=== PATIENT | female | born 1995 | race Caucasian/White ===

== ENCOUNTER 2019-05-14 21:50 | Emergency (ER) | payer OTHER, SELFPAY ==
[~2019-05-14] VITALS: Ht 160 cm; Wt 73.6 kg
[~2019-05-14 21:50] MED LIST: HYDR-3965 PO
[2019-05-14 22:34] LABS: CLARITY,URINE CLEAR (Clear); COLOR,URINE STRAW (Yellow); GLUCOSE, URINE NEGATIVE (Neg); KETONES,URINE NEGATIVE (Neg); LEUKOCYTE ESTERASE ,URINE NEGATIVE (Neg); NITRITES, URINE NEGATIVE (Neg); OCCULT BLOOD,URINE LARGE (Neg); PROTEIN,URINE NEGATIVE (Neg); UROBILINOGEN,URINE 0.2 E.U/dL (0.2-1.0)
[2019-05-14 22:35] LABS: UA COLLECTION TYPE CLN CATCH MIDSTREAM
[2019-05-14 22:41] LABS: BACTERIA,URINE NONE SEEN /HPF (Neg); RBC,URINE 0-2 /HPF (0-2); SQUAMOUS EPITHELIAL CELL,UR FEW /LPF (FEW); WBC,URINE NONE SEEN /HPF (0-4)
[2019-05-14 23:40] VITALS: BP 120/82
== END 2019-05-14 23:42 | disposition home or self-care (01) ==
LOC: ER 21:51
DX: O20.0 Threatened abortion (principal); Z3A.01 Less than 8 weeks gestation of pregnancy; Z79.899 Other long term (current) drug therapy
CPT/HCPCS: 36415; 81001; 84702; 86900; 86901; 99283

== ENCOUNTER 2019-05-22 09:32 | Emergency (ER) | payer MEDICAID, OTHER ==
[~2019-05-22] VITALS: Ht 160 cm; Wt 73.6 kg
--- NOTE | 2019-05-22 10:49 | NUR ---
ULTRA SOUND AT BEDSIDE
--- NOTE | 2019-05-22 11:28 | NUR ---
ULTRA SOUND IS FINISHED
[2019-05-22 11:35] LABS: URINE HCG POSITIVE (NEG)
[2019-05-22 11:36] VITALS: BP 122/78
[2019-05-22 11:36] LABS: CLARITY,URINE CLOUDY (Clear); COLOR,URINE YELLOW (Yellow); GLUCOSE, URINE NEGATIVE (Neg); KETONES,URINE NEGATIVE (Neg); LEUKOCYTE ESTERASE ,URINE MODERATE (Neg); NITRITES, URINE NEGATIVE (Neg); OCCULT BLOOD,URINE LARGE (Neg); PROTEIN,URINE TRACE mg/dl (Neg)
[2019-05-22 11:46] LABS: UA COLLECTION TYPE CLN CATCH MIDSTREAM
[2019-05-22 11:46] LABS: BASOPHILS # (AUTO) 0.1 X10'3 (0-0.2); BASOPHILS % (AUTO) 0.6 % (0-1); EOSINOPHILS # (AUTO) 0.1 X10'3 (0-0.9); EOSINOPHILS % (AUTO) 1.1 % (0-6); HEMATOCRIT 38.8 % (35.0-45.0); HEMOGLOBIN 13.1 g/dl (12.0-16.0); LYMPHOCYTES # (AUTO) 2.3 X10'3 (1.1-4.8); LYMPHOCYTES % (AUTO) 22.3 % (21-51); MEAN CORPUSCULAR HEMOGLOBIN 28.4 PG (27.0-31.0); MEAN CORPUSCULAR HGB CONC 33.7 g/dL (33.0-36.5); MEAN CORPUSCULAR VOLUME 84.2 FL (78-98); MEAN PLATELET VOLUME 6.9 FL (7.4-10.4); MONOCYTES # (AUTO) 0.7 X10'3 (0-0.9); MONOCYTES % (AUTO) 6.7 % (2-12); NEUTROPHILS # (AUTO) 7.3 X10'3 (1.8-7.7); NEUTROPHILS % (AUTO) 69.3 % (42-75); PLATELET COUNT 494 X10'3 (140-440); RED BLOOD COUNT 4.61 X10'6 (4.20-5.60); RED CELL DISTRIBUTION WIDTH 12.5 % (11.5-14.5); WHITE BLOOD COUNT 10.5 X10'3 (4.5-11.0)
[2019-05-22 12:02] LABS: ALANINE AMINOTRANSFERASE 15 U/L (12-78); ALBUMIN 3.8 G/DL (3.4-5.0); ALKALINE PHOSPHATASE 74 IU/L (46-116); ANION GAP 11 (8-16); ASPARTATE AMINO TRANSFERASE 14 U/L (10-37); BILIRUBIN,TOTAL 0.4 MG/DL (0.1-1.0); BLOOD UREA NITROGEN 6 MG/DL (7-18); BUN/CREATININE RATIO 9.5 (6.6-38.0); CALCIUM 9.3 MG/DL (8.5-10.1); CHLORIDE 103 MMOL/L (99-107); CREATININE 0.63 MG/DL (0.40-0.90); GLUCOSE 86 MG/DL (70-104); POTASSIUM 3.5 MMOL/L (3.5-5.1); SODIUM 137 MMOL/L (135-145); TOTAL CARBON DIOXIDE 22.9 MMOL/L (24-32); TOTAL PROTEIN 7.6 G/DL (6.4-8.2); eGFR > 90 ML/MIN
[2019-05-22 12:09] LABS: MUCUS STRANDS MANY /LPF (Neg); SQUAMOUS EPITHELIAL CELL,UR MANY /LPF (FEW)
[2019-05-22 12:14] LABS: BACTERIA,URINE 2+ /HPF (Neg); WBC,URINE 30-50 /HPF (0-4)
[2019-05-22 12:16] LABS: WBC CLUMPS,URINE MODERATE /HPF (NEGATIVE)
[2019-05-22 12:23] LABS: TRANSITIONAL EPI CELLS,URINE FEW /HPF
[2019-05-22 12:26] LABS: BETA HCG,QUANTITATIVE 77403 mIU/ml
[2019-05-22] MEDS ORDERED: CEPH250T PO (12:28)
== END 2019-05-22 12:45 | disposition home or self-care (01) ==
LOC: ER 09:33
DX: O00.01 Abdominal pregnancy with intrauterine pregnancy (principal); O23.41 Unspecified infection of urinary tract in pregnancy, first trimester; Z3A.01 Less than 8 weeks gestation of pregnancy; Z79.899 Other long term (current) drug therapy
CPT/HCPCS: 36415; 76817; 80053; 81001; 81025; 84702; 85025; 99284

== ENCOUNTER 2019-10-24 01:23 | Emergency (ER) | payer MEDICAID ==
[~2019-10-24] VITALS: Ht 162.6 cm; Wt 71.8 kg
[2019-10-24 01:24] VITALS: BP 126/77
--- NOTE | 2019-10-24 01:48 | NUR ---
HR 160 BEATS A MINUTE
== END 2019-10-24 02:27 | disposition home or self-care (01) ==
LOC: ER 01:24
DX: O71.6 Obstetric damage to pelvic joints and ligaments (principal); Z3A.29 29 weeks gestation of pregnancy; Z79.899 Other long term (current) drug therapy
CPT/HCPCS: 99281

== ENCOUNTER 2020-02-10 06:21 | Emergency (ER) | payer MEDICAID ==
[2020-02-10] MEDS ORDERED: morphine 4 MG/ML inj SYRINge IV ONE (06:45)
[2020-02-10] MEDS ORDERED: ondansetron/PF 4mg/2ml inj IV ONE (06:45)
[2020-02-10] MEDS ORDERED: normal saline 1000ml 1,000 ML IV ONE (06:45)
--- NOTE | 2020-02-10 07:32 | NUR ---
Pt difficult IV start. Unable to obtain lab draw from IV, MD White updated and lab to send someone down. Pt with IV running fluids, meds administered and pt reporting moderate pain control.
[2020-02-10 07:35] LABS: CLARITY,URINE SLIGHTLY CLOUDY (Clear); COLOR,URINE YELLOW (Yellow); GLUCOSE, URINE NEGATIVE (Neg); KETONES,URINE NEGATIVE (Neg); LEUKOCYTE ESTERASE ,URINE SMALL (Neg); NITRITES, URINE NEGATIVE (Neg); OCCULT BLOOD,URINE NEGATIVE (Neg); PROTEIN,URINE NEGATIVE (Neg); UROBILINOGEN,URINE 0.2 E.U/dL (0.2-1.0)
[2020-02-10 07:42] LABS: UA COLLECTION TYPE CLN CATCH MIDSTREAM
[2020-02-10 07:44] LABS: BACTERIA,URINE FEW /HPF (Neg); MUCUS STRANDS FEW /LPF (Neg); RBC,URINE NONE SEEN /HPF (0-2); SQUAMOUS EPITHELIAL CELL,UR FEW /LPF (FEW); TRANSITIONAL EPI CELLS,URINE FEW /HPF
[2020-02-10] MEDS ORDERED: NO HOME MEDS (07:44)
[2020-02-10 08:04] LABS: BASOPHILS # (AUTO) 0.1 X10'3 (0-0.2); BASOPHILS % (AUTO) 0.7 % (0-1); EOSINOPHILS # (AUTO) 0.3 X10'3 (0-0.9); EOSINOPHILS % (AUTO) 2.7 % (0-6); HEMATOCRIT 37.3 % (35.0-45.0); LYMPHOCYTES # (AUTO) 1.6 X10'3 (1.1-4.8); LYMPHOCYTES % (AUTO) 15.6 % (21-51); MEAN CORPUSCULAR HEMOGLOBIN 27.7 PG (27.0-31.0); MEAN CORPUSCULAR HGB CONC 32.3 g/dL (33.0-36.5); MEAN CORPUSCULAR VOLUME 85.8 FL (78-98); MONOCYTES # (AUTO) 0.6 X10'3 (0-0.9); MONOCYTES % (AUTO) 6.3 % (2-12); NEUTROPHILS # (AUTO) 7.7 X10'3 (1.8-7.7); NEUTROPHILS % (AUTO) 74.7 % (42-75); PLATELET COUNT 421 X10'3 (140-440); RED BLOOD COUNT 4.34 X10'6 (4.20-5.60); RED CELL DISTRIBUTION WIDTH 13.4 % (11.5-14.5); WHITE BLOOD COUNT 10.3 X10'3 (4.5-11.0)
--- NOTE | 2020-02-10 08:10 | NUR ---
US AT BEDSIDE
[2020-02-10 08:14] LABS: ALBUMIN 3.1 G/DL (3.4-5.0); ANION GAP 8 (8-16); BILIRUBIN,TOTAL 0.3 MG/DL (0.1-1.0); BLOOD UREA NITROGEN 12 MG/DL (7-18); BUN/CREATININE RATIO 16.4 (6.6-38.0); CALCIUM 8.9 MG/DL (8.5-10.1); CHLORIDE 106 MMOL/L (99-107); CREATININE 0.73 MG/DL (0.40-0.90); GLUCOSE 90 MG/DL (70-104); POTASSIUM 3.9 MMOL/L (3.5-5.1); SODIUM 140 MMOL/L (135-145); TOTAL CARBON DIOXIDE 26.5 MMOL/L (24-32); TOTAL PROTEIN 6.2 G/DL (6.4-8.2); eGFR > 90 ML/MIN
[2020-02-10 08:15] LABS: ALANINE AMINOTRANSFERASE 20 U/L (12-78); ALKALINE PHOSPHATASE 127 IU/L (46-116); ASPARTATE AMINO TRANSFERASE 23 U/L (10-37); LIPASE 113 U/L (73-393)
[2020-02-10] MEDS ORDERED: CEFD300C3 PO (08:25)
[2020-02-10] MEDS ORDERED: ONDA4TAB6 PO (08:25)
--- NOTE | 2020-02-10 08:30 | NUR ---
Pt received 8oz water and to monitor for n/v.
[2020-02-10 08:49] VITALS: BP 117/74
== END 2020-02-10 08:52 | disposition home or self-care (01) ==
LOC: ER 06:22
DX: N10 Acute pyelonephritis (principal); R11.10 Vomiting, unspecified; Z79.899 Other long term (current) drug therapy
CPT/HCPCS: 36415; 76700; 80053; 81001; 83690; 85025; 87088; 96361; 96374; 96375; 99284; J2270; J2405; J7030

== ENCOUNTER 2021-02-02 02:34 | Emergency (ER) | payer MEDICAID ==
[~2021-02-02] VITALS: Ht 162.6 cm; Wt 75.0 kg
[~2021-02-02 02:34] MED LIST changes: -HYDR-3965 PO; +NO HOME MEDS; +ONDA4TAB6 PO
[2021-02-02] MEDS ORDERED: normal saline 1000ML IV soln IV ONE ×2 (03:25→04:30)
[2021-02-02 03:58] LABS: CLARITY,URINE CLEAR (Clear); COLOR,URINE YELLOW (Yellow); GLUCOSE, URINE NEGATIVE (Neg); KETONES,URINE NEGATIVE (Neg); LEUKOCYTE ESTERASE ,URINE TRACE (Neg); NITRITES, URINE NEGATIVE (Neg); OCCULT BLOOD,URINE MODERATE (Neg); PH,URINE 5.5 (4.8-8.0); PROTEIN,URINE NEGATIVE (Neg); UROBILINOGEN,URINE 0.2 E.U/dL (0.2-1.0)
[2021-02-02] MEDS ORDERED: ondansetron/PF 4mg/2ml inj IV ONE (04:00)
[2021-02-02] MEDS ORDERED: ketorolac trometh. 30mg/ml inj. IV ONE (04:00)
[2021-02-02 04:04] LABS: ALANINE AMINOTRANSFERASE 17 U/L (12-78); ALBUMIN 4.2 G/DL (3.4-5.0); ALBUMIN/GLOBULIN RATIO 1.2 (1.1-1.5); ALKALINE PHOSPHATASE 131 IU/L (46-116); ANION GAP 11 (8-16); ASPARTATE AMINO TRANSFERASE 11 U/L (10-37); BILIRUBIN,TOTAL 0.3 MG/DL (0.1-1.0); BLOOD UREA NITROGEN 9 MG/DL (7-18); BUN/CREATININE RATIO 10.5 (6.6-38.0); CALCIUM 8.8 MG/DL (8.5-10.1); CHLORIDE 104 MMOL/L (99-107); CREATININE 0.86 MG/DL (0.40-0.90); GLUCOSE 109 MG/DL (70-104); MAGNESIUM 1.7 MG/DL (1.5-2.4); POTASSIUM 4.2 MMOL/L (3.5-5.1); SODIUM 139 MMOL/L (135-145); TOTAL CARBON DIOXIDE 23.6 MMOL/L (24-32); TOTAL PROTEIN 7.8 G/DL (6.4-8.2); eGFR 80 ML/MIN
[2021-02-02 04:05] LABS: UA COLLECTION TYPE CLN CATCH MIDSTREAM
[2021-02-02 04:05] LABS: BASOPHILS # (AUTO) 0.1 X10'3 (0-0.2); BASOPHILS % (AUTO) 0.3 % (0-1); EOSINOPHILS # (AUTO) 0.1 X10'3 (0-0.9); EOSINOPHILS % (AUTO) 0.3 % (0-6); HEMATOCRIT 41.4 % (35.0-45.0); HEMOGLOBIN 13.6 g/dl (12.0-16.0); LYMPHOCYTES # (AUTO) 1.4 X10'3 (1.1-4.8); LYMPHOCYTES % (AUTO) 8.5 % (21-51); MEAN CORPUSCULAR HEMOGLOBIN 27.8 PG (27.0-31.0); MEAN CORPUSCULAR HGB CONC 32.8 g/dL (33.0-36.5); MEAN CORPUSCULAR VOLUME 84.6 FL (78-98); MEAN PLATELET VOLUME 6.8 FL (7.4-10.4); MONOCYTES # (AUTO) 1.1 X10'3 (0-0.9); MONOCYTES % (AUTO) 6.7 % (2-12); NEUTROPHILS # (AUTO) 14.1 X10'3 (1.8-7.7); NEUTROPHILS % (AUTO) 84.2 % (42-75); PLATELET COUNT 556 X10'3 (140-440); RED BLOOD COUNT 4.89 X10'6 (4.20-5.60); RED CELL DISTRIBUTION WIDTH 12.9 % (11.5-14.5); WHITE BLOOD COUNT 16.7 X10'3 (4.5-11.0)
[2021-02-02 04:07] LABS: BACTERIA,URINE NONE SEEN /HPF (Neg); SQUAMOUS EPITHELIAL CELL,UR NONE SEEN /LPF (FEW); WBC,URINE 0-4 /HPF (0-4)
[2021-02-02] MEDS ORDERED: piperacillin/tazo 3.375gm/50ml 50 ML IV ONE (04:30)
[2021-02-02] MEDS ORDERED: HYDR-3972 PO (04:41)
[2021-02-02] MEDS ORDERED: AMOX-422 PO (04:41)
[2021-02-02 06:09] VITALS: BP 106/66
== END 2021-02-02 06:10 | disposition home or self-care (01) ==
LOC: ER 02:35
DX: N61.0 Mastitis without abscess (principal); R50.9 Fever, unspecified; N64.4 Mastodynia; R11.0 Nausea; M54.5 Low back pain; Z87.440 Personal history of urinary (tract) infections; Z79.2 Long term (current) use of antibiotics
CPT/HCPCS: 36415; 80053; 81001; 83605; 83735; 84145; 85025; 87040; 87088; 96361; 96374; 96375; 99284; J1885; J2405; J2543; J7030